=== PATIENT | female | born 1940 | race Caucasian/White ===

== ENCOUNTER 2016-11-18 13:24 | Inpatient (IN) ==
[2016-11-26 05:47] LABS: Basophils % 0.5 %; Eosinophils # 0.2 K/mcL (0.0-0.6); Eosinophils % 2.1 %; Hemoglobin 9.3 g/dL (11.5-15.4); Immature Granulocytes % 0.5 % (0-4); Lymphocytes # 1.6 K/mcL (0.6-4.6); Lymphocytes % 17.9 %; Mean Corpuscular HGB Conc 33.2 g/dL (31.6-35.5); Mean Corpuscular Hemoglobin 32.1 pg (28.0-33.3); Mean Corpuscular Volume 96.6 fL (83.0-100.0); Mean Platelet Volume 8.6 fL (9.4-12.4); Monocytes # 0.9 K/mcL (0.0-1.3); Monocytes % 9.8 %; Neutrophils # 6.1 K/mcL (1.6-8.9); Platelet Count 386 K/mcL (140-400); Red Cell Distribution Width 14.9 % (11.5-14.5); Segmented Neutrophils % 69.2 %
[2016-11-26 05:48] LABS: INR 1.1; Prothrombin Time 11.4 Seconds (9.4-12.1)
[2016-11-26 05:51] LABS: Activated Partial Thrombo Time 28.2 Seconds (26.0-36.0)
[2016-11-26 06:09] LABS: BUN/Creatinine Ratio 14 (6-26); Blood Urea Nitrogen 12 mg/dL (7-20); Calcium 9.2 mg/dL (8.6-10.8); Carbon Dioxide 28 mEq/L (19-29); Chloride 105 mEq/L (98-109); Glucose 108 mg/dL (70-99); Osmolality,Calculated 288 (280-300); Potassium 4.2 mEq/L (3.5-4.5); Sodium 139 mEq/L (136-145); eGFR For African Americans > 60 (> 60); eGFR For Non-African Americans > 60 (> 60)
[2016-11-26] MEDS: Acetaminophen 325 MG TABLET PO PRN (08:32)
--- NOTE | 2016-11-26 11:39 | Internal Med History&Physical ---
Date of Encounter: 11/26/16 Time of Encounter: 11:37 Assessment and Plan (1) Symptoms of cerebrovascular accident (CVA) Current visit: No Status: Acute (2) Slurred speech Current visit: No Status: Acute (3) Acute encephalopathy Current visit: No Status: Acute (4) Acquired aphasia Current visit: No Status: Acute (5) Encephalopathy Current visit: No Status: Acute Internal Medicine - H&P: HPI Chief complaint: Family states on Friday she started slurring of speech complaining of cepha Admitted From: Emergency Dept Plans for Post Hospital Care: Home History of present illness: Ms. Yepez is a 76 year old female Age was admitted from emergency room with the above symptoms to rule out CVA. Initial examination with radiology did not reveal any acute CVA. Paternal microvascular disease Past Med Surg Social Fam HX - Past Medical History Medical history: arthritis, cancer, hyperlipidemia Psychiatric history: no psych history - Past Surgical History Surgical History: breast surgery - Social History Smoking Status: Former smoker Smokeless Tobacco Status: No Alcohol use: occasionally Drug use: none - Family History Mother Adopted: No Living Status: Age at : 43 Hx Family Cardiac Disorders: Yes Internal Medicine - H&P: Meds Acetaminophen [Tylenol] 650 mg PO Q6HR PRN #0 tablet 11/14/16 [Rx] Clopidogrel [Plavix] 75 mg PO DAILY 11/25/16 [History] MiraLAX Powder Bulk 17.9 Oz 17 g PO DAILY 11/25/16 [History] Tramadol HCl [Ultram] 50 mg PO QID PRN 11/25/16 [History] Allergies No Known Allergies Allergy (Verified 11/11/16 16:58) All Systems PM: A 10-system review of systems was performed and is negative for pertinent findings except as documented above in the HPI. - Constitutional Vitals: Temp Pulse Resp BP Pulse Ox 98.2 F 82 16 119/72 95 11/26/16 07:12 11/26/16 07:12 11/26/16 07:12 11/26/16 07:12 11/26/16 07:12 - Head Head exam: Present: atraumatic, normal inspection, normocephalic - Neck Neck exam general surgery: Present: supple, trachea midline. Absent: lymphadenopathy - Respiratory Respiratory exam: Present: CTAB. Absent: accessory muscle use, rales, rhonchi, wheezes - Cardiovascular Cardiovascular exam: Present: RRR, +S1, +S2. Absent: diastolic murmur, gallop, rubs, systolic murmur - GI/Abdominal GI/Abdominal exam: Present: normal bowel sounds, soft, no peritoneal signs. Absent: distended, tenderness Internal Med - H&P Results - Labs CBC & Chem 7: 11/26/16 05:25 11/26/16 05:25 Labs: Short CBC 11/26/16 Range/Units 05:25 WBC 8.9 (4.3-11.1) K/mcL Hgb 9.3 L (11.5-15.4) g/dL Hct 28.0 L (35.3-44.9) % Plt Count 386 (140-400) K/mcL Neutrophils # 6.1 (1.6-8.9) K/mcL BMP 11/26/16 05:25 Sodium 139 Potassium 4.2 Chloride 105 Carbon Dioxide 28 BUN 12 Creatinine 0.84 Glucose 108 H Calcium 9.2 Lab is stable - VTE Documentation of Mechanical Device: Graduated compression elastic hosiery
[2016-11-26] MEDS ORDERED: Ibuprofen 800 MG TABLET PO ONE (13:15)
[2016-11-26] MEDS: MOM Conc 10 ML UD.LIQ PO SCH (20:42)
[2016-11-27] MEDS: Ibuprofen 800 MG TABLET PO PRN (06:08)
[2016-11-27] MEDS: Acetaminophen 325 MG TABLET PO PRN (07:42)
--- NOTE | 2016-11-27 12:58 | Internal Med Progress Note ---
Date of Encounter: 11/27/16 Time of Encounter: 12:56 - Assessment and plan (1) Symptoms of cerebrovascular accident (CVA) Current Visit: Yes Status: Acute (2) Slurred speech Current Visit: Yes Status: Acute (3) Acute encephalopathy Current Visit: Yes Status: Acute (4) Acquired aphasia Current Visit: Yes Status: Acute (5) Encephalopathy Current Visit: No Status: Acute - Time Spent With Patient less than 15 minutes - Subjective Interval history: Mrs. Joyce Santiago is cooperating. Her speech is amaro. The problem is she said she had some rectal bleeding. I did a hemoglobin and we will see if it has dropped. Apparently there is a previous colonoscopy since she had diverticular disease - Constitutional Vitals: Temp Pulse Resp BP Pulse Ox 98.2 F 76 18 120/74 96 11/27/16 06:57 11/27/16 06:57 11/27/16 06:57 11/27/16 06:57 11/27/16 06:57 - Head Head exam: Present: atraumatic, normal inspection, normocephalic - Neck Neck exam general surgery: Present: supple, trachea midline. Absent: lymphadenopathy - Respiratory Respiratory exam: Present: CTAB. Absent: accessory muscle use, rales, rhonchi, wheezes - Cardiovascular Cardiovascular exam: Present: RRR, +S1, +S2. Absent: diastolic murmur, gallop, rubs, systolic murmur - GI/Abdominal GI/Abdominal exam: Present: normal bowel sounds, soft, no peritoneal signs. Absent: distended, tenderness Internal Medicine: Result - Labs CBC & Chem 7: 11/26/16 05:25 11/26/16 05:25 Labs: Last hemoglobin was 9.3 so we will follow - ABG Interpretation ABG results: PT/INR, D-dimer PT 11.4 Seconds (9.4-12.1) 11/26/16 05:25 - VTE Documentation of Mechanical Device: Graduated compression elastic hosiery Consult Discharge Plan - Plan Referrals: Herman King MD [Primary Care Provider] - (Follow up with Neurology in 8-10 wks. Tesha Ricketts DO [address] [place], [place] [phone] Follow up with PCP after discharge Herman King MD [address] [place], [place] [phone] )
--- NOTE | 2016-11-27 13:51 | Psychological Evaluation ---
Date of Encounter: 11/27/16 Time of Encounter: 11:00 History of Present Illness History of present illness: Ms. Yepez is a 76 year old female initially seen at the ED of [facility] to rule out CVA following the sudden onset of slurred, unintelligible speech and poor balance. Ms Yepez was then transferred to [facility] for further medical work-up. She was admitted to [facility] earlier this week (11/25/16) for inpatient rehabilitation to address limitations related to her recent CVA. She was seen by this provider on this date to assess her current emotional and cognitive functioning and to address her report of visual hallucinations. Past Medical History Medical history: Significant for cancer, hyperlipidemia and arthritis. - Psychiatric History Additional Psychiatric History: There is no history of psychiatric hospitalization or history of suicidal ideation, intention or attempt. She has been treated for depression and reported that she saw therapist in the past. There is no family history of psychiatric or mental health issues. Home Medications and Allergies Acetaminophen [Tylenol] 650 mg PO Q6HR PRN #0 tablet 11/14/16 [Rx] Clopidogrel [Plavix] 75 mg PO DAILY 11/25/16 [History] MiraLAX Powder Bulk 17.9 Oz 17 g PO DAILY 11/25/16 [History] Tramadol HCl [Ultram] 50 mg PO QID PRN 11/25/16 [History] Allergies No Known Allergies Allergy (Verified 11/11/16 16:58) Social History - Social History Social History: Ms. Yepez has been to her for over 50 years. She stated that her is 90 years old and she is his main caregiver. He has been having more health issues in recent years (CHF and kidney failure for which he is on dialysis). The couple had retired to [place] but returned to [place] in June 2016 to be closer to their children/family. Ms. Yepez stated that they have one son (lives in [place]) and one daughter (lives in [place]). 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 She used to enjoy scrapbooking, reading and exercising. Her days had been focused on care of her prior to her CVA. - Tobacco Use Smoking Status: Former smoker - Alcohol Use Alcohol Use: occasionally Cognitive/Emotional Assessment - Cognitive Ability Additional Findings: Ms. Yepez was alert, attentive and oriented for person and place. She was correct for month and year but identified the date as "14". She performed within the normal range on tasks measuring attention/concentration, working memory, verbal comprehension, sentence repetition, confrontational naming and mental arithmetic. She also performed within the normal range on social judgment and verbal reasoning. Her performance on a measure of delayed verbal recall fell within the mildly impaired range. She exhibited problems with retrieval of new information but her performance was improved with category and recognition cueing. Ms. Yepez presented as aware of her cognitive strengths and weaknesses. - Emotional Status Additional Findings: Ms. Yepez was pleasant, friendly and cooperative. Her speech was clear, effective and fluent. Thought processes were logical, coherent and goal directed. Mood was reported to be "depressed" and she became tearful when talking about her concerns about her 's health. She acknowledged that she and her tend to "protect" each other and do not share their fears/ emotional concerns with each other. She uses prayer, talking with friends, music and reading to cope with distress. In addition to her depressed mood, Ms. Yepez reported that she has been having visual hallucinations since her CVA. She "sees" images of people but when she turns her head, the image disappears. She is very aware that these are hallucinations. The images are of people not known by her and they do not create a sense of fear. There is no history of visual hallucinations prior to her recent CVA. 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 However, she is exhibiting some difficulty with delayed verbal recall and will benefit from the use of verbal and visual cueing for learning new information (ie how to use walker; medication changes or restrictions/ supervision needs). Emotionally, Ms. Yepez acknowledged feelings of depression and heightened concerns about her 's health and her own recovery. She will be provided individual supportive counseling while she is an inpatient at [facility]. Procedures - Session Time Session Start Time: 11:00 Session Stop Time: 11:30
--- NOTE | 2016-11-27 15:22 | Physcial Medicine-Consult Note ---
Date of Encounter: 11/27/16 Time of Encounter: 15:18 Physical Medicine - AP (1) Symptoms of cerebrovascular accident (CVA) Status: Acute Assessment and plan: 1. Patient will continue with intensive PT/OT/ST/TR. 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 She has difficulty using a walker safely and requires frequent cues. She has occasional loss of balance with ambulation. She has some issues with impulsivity. 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 Short term memory deficits-can retrieve memories with cues. At this point, patient will require an alarm for safety due her impulsivity. Plan for continued therapy for 2 weeks with goal of discharge to home. Code(s): R29.90 - Unspecified symptoms and signs involving the nervous system SNOMED Code(s): 613451229 (2) Anemia Status: Acute Assessment and plan: 1. She complains of fatigue which is possibly secondary to her anemia. Recommend rechecking hemoglobin and hematocrit in am. Patient with history of gi bleed with a drop in hgb to 9.3 from 11. Potential repeat endoscopy this week. Code(s): D64.9 - Anemia, unspecified SNOMED Code(s): 027911868 (3) Hallucinations, visual Status: Acute Assessment and plan: 1. She is complaining of frequent visual hallucinations. She is aware that they are hallucinations. We will discontinue the ultram. Code(s): R44.1 - Visual hallucinations SNOMED Code(s): 92612232 Physical Medicine - HPI - Data of Consult Consult date: 11/27/16 Requesting Physician: Duran Barlow DO Primary Care Provider: Herman King MD - Consult Narrative Reason for consult: s/p CVA History of present illness: Ms. Yepez is a 76 year old female who initially presented to an OSH with acute encephalopathy, dysarthria and aphasia. An mri of her brain revealed a left medial lobe occipital infarct. Her acute course was complicated by a gi bleed requiring transfusion. Patient was subsequently stabilized and transferred for inpatient rehabilitation. CC: Druan Barlow DO Past Med Surg Social Fam HX - Past Medical History Medical history: arthritis, cancer, hyperlipidemia Psychiatric history: no psych history - Past Surgical History Surgical History: breast surgery - Social History Smoking Status: Former smoker Smokeless Tobacco Status: No Alcohol use: occasionally Drug use: none - Family History Mother Adopted: No Living Status: Age at : 43 Hx Family Cardiac Disorders: Yes Medications and Allergies Acetaminophen [Tylenol] 650 mg PO Q6HR PRN #0 tablet 11/14/16 [Rx] Clopidogrel [Plavix] 75 mg PO DAILY 11/25/16 [History] MiraLAX Powder Bulk 17.9 Oz 17 g PO DAILY 11/25/16 [History] Tramadol HCl [Ultram] 50 mg PO QID PRN 11/25/16 [History] Allergies No Known Allergies Allergy (Verified 11/11/16 16:58) - Constitutional Constitutional: Present: fatigue - EENT Eyes: Absent: blurry vision, change in vision - Cardiovascular Cardiovascular: Absent: chest pain, chest pain at rest, dyspnea - Respiratory Respiratory: Absent: dyspnea - Gastrointestinal Gastrointestinal: Present: constipation, nausea - Genitourinary Genitourinary: Absent: urinary incontinence - Musculoskeletal Musculoskeletal: Present: abnormal gait - Neurological Neurological: Present: headache(s) - Psychiatric Psychiatric: Present: visual hallucinations Physical Medicine - Exam - Constitutional Vitals: Temp Pulse Resp BP Pulse Ox 98.2 F 76 18 120/74 96 11/27/16 06:57 11/27/16 06:57 11/27/16 06:57 11/27/16 06:57 11/27/16 06:57 General appearance: no acute distress, thin Exam: Patient is seated in the therapy gym. She is oriented to person and place. She is able to follow multistep commands. - Head Head exam: Present: normal inspection Additional comments: No facial droop. - Respiratory Respiratory exam: Present: CTAB - Cardiovascular Cardiovascular exam: Present: RRR - GI/Abdominal GI/Abdominal exam: Present: normal bowel sounds, soft. Absent: tenderness - Extremities Exam Extremities exam: Present: full ROM. Absent: calf tenderness Additional comments: Reflexes are absent symmetrically in the upper and lower limbs. Motor strength is 5/5 in all 4 limbs. No pain with PROM of the upper and lower limbs. Physical Medicine - Results - Labs CBC & Chem 7: 11/26/16 05:25 11/26/16 05:25 Consult Discharge Plan - Plan Referrals: Herman King MD [Primary Care Provider] - (Follow up with Neurology in 8-10 wks. Tesha Ricketts DO [address] [facility] [address] [place], [place] [phone] Follow up with PCP after discharge Herman King MD [address] [facility] [place], [place] [phone] )
[2016-11-27 19:01] LABS: Hematocrit 30.3 % (35.3-44.9); Hemoglobin 9.7 g/dL (11.5-15.4)
[2016-11-27] MEDS: MOM Conc 10 ML UD.LIQ PO SCH (20:38)
[2016-11-28] MEDS: Ibuprofen 800 MG TABLET PO PRN ×2 (05:31→17:50)
--- NOTE | 2016-11-28 13:27 | Internal Med Progress Note ---
Date of Encounter: 11/28/16 Time of Encounter: 13:24 - Assessment and plan (1) Symptoms of cerebrovascular accident (CVA) Current Visit: Yes Status: Acute Assessment and plan: Patient is significantly improve or work with all modalities of therapy (2) Slurred speech Current Visit: Yes Status: Acute Assessment and plan: This is essentially resolved (3) Acute encephalopathy Current Visit: Yes Status: Acute Assessment and plan: This also was resolved (4) Acquired aphasia Current Visit: Yes Status: Acute (5) Encephalopathy Current Visit: No Status: Acute - Time Spent With Patient less than 15 minutes - Subjective Interval history: Mrs. Joyce Santiago is cooperating. Her speech is improved. The problem is she said she had some rectal bleeding. I did a hemoglobin and we will see if it has dropped. Apparently there is a previous colonoscopy since she had diverticular disease - Constitutional Vitals: Temp Pulse Resp BP Pulse Ox 98.5 F 71 18 115/59 96 11/28/16 07:00 11/28/16 07:00 11/28/16 07:00 11/28/16 07:00 11/28/16 07:00 - Head Head exam: Present: atraumatic, normal inspection, normocephalic - Neck Neck exam general surgery: Present: supple, trachea midline. Absent: lymphadenopathy - Respiratory Respiratory exam: Present: CTAB. Absent: accessory muscle use, rales, rhonchi, wheezes - Cardiovascular Cardiovascular exam: Present: RRR, +S1, +S2. Absent: diastolic murmur, gallop, rubs, systolic murmur - GI/Abdominal GI/Abdominal exam: Present: normal bowel sounds, soft, no peritoneal signs. Absent: distended, tenderness Internal Medicine: Result - Labs CBC & Chem 7: 11/27/16 18:35 11/26/16 05:25 Labs: Short CBC 11/27/16 Range/Units 18:35 Hgb 9.7 L (11.5-15.4) g/dL Hct 30.3 L (35.3-44.9) % Hemoglobin is stable here will be repeated in am - ABG Interpretation ABG results: PT/INR, D-dimer PT 11.4 Seconds (9.4-12.1) 11/26/16 05:25 - VTE Documentation of Mechanical Device: Graduated compression elastic hosiery Consult Discharge Plan - Plan Referrals: Herman King MD [Primary Care Provider] - (Follow up with Neurology in 8-10 wks. Tesha Ricketts, DO [address] [facility] [address] [place], [place] [phone] Follow up with PCP after discharge Herman King MD [address] [facility] [place], [place] [phone] )
[2016-11-28] MEDS: MOM Conc 10 ML UD.LIQ PO SCH (21:12)
[2016-11-29] MEDS: Ibuprofen 800 MG TABLET PO PRN (04:39)
[2016-11-29] MEDS: MOM Conc 10 ML UD.LIQ PO SCH (20:04)
--- NOTE | 2016-11-29 22:42 | Internal Med Progress Note ---
Date of Encounter: 11/29/16 Time of Encounter: 22:40 - Assessment and plan (1) Symptoms of cerebrovascular accident (CVA) Current Visit: Yes Status: Acute Assessment and plan: Right-sided waviness in balance issues. PT OT working in improving violence, transfer, continue with intensive PT/OT/ST/TR. 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 She has difficulty using a walker safely and requires frequent cues. She has occasional loss of balance with ambulation. She has some issues with impulsivity. 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 - Time Spent With Patient less than 15 minutes - Subjective Interval history: Denies new complaints today. Same right-sided awareness issue. Same balance difficulty. Has occasional hallucination. No shortness of breath. No chest pain. - Constitutional Vitals: Temp Pulse Resp BP Pulse Ox 97.8 F 83 16 126/67 94 11/29/16 19:00 11/29/16 19:00 11/29/16 19:00 11/29/16 19:00 11/29/16 19:00 General appearance: Present: A&O X 3, pleasant, answers questions appropriately - Respiratory Respiratory exam: Present: CTAB. Absent: accessory muscle use, rales, rhonchi, wheezes - Cardiovascular Cardiovascular exam: Present: RRR, +S1, +S2. Absent: diastolic murmur, gallop, rubs, systolic murmur - GI/Abdominal GI/Abdominal exam: Present: normal bowel sounds, soft, no peritoneal signs. Absent: distended, tenderness - Extremities Exam Extremities exam: Present: warm, radial pulses palpable and symetrical. Absent : calf tenderness, cyanotic, pedal edema - Neurological Exam Neurological exam: Present: alert, oriented X3. Absent: facial droop, speech deficit Additional comments: Right-sided awareness deficit. Some loss of balance. Internal Medicine: Result - Labs CBC & Chem 7: 11/27/16 18:35 11/26/16 05:25 - ABG Interpretation ABG results: PT/INR, D-dimer PT 11.4 Seconds (9.4-12.1) 11/26/16 05:25 - VTE Documentation of Mechanical Device: Graduated compression elastic hosiery Consult Discharge Plan - Plan Referrals: Herman King MD [Primary Care Provider] - (Follow up with Neurology in 8-10 wks. Tesha Ricketts DO [address] [place], [place] [phone] Follow up with PCP after discharge Herman King MD [address] [facility] [place], [place] [phone] )
[2016-11-30] MEDS: Ibuprofen 800 MG TABLET PO PRN ×2 (08:04→21:54)
[2016-11-30] MEDS: MOM Conc 10 ML UD.LIQ PO SCH (20:59)
[2016-12-01] MEDS: Ibuprofen 800 MG TABLET PO PRN (09:44)
[2016-12-01] MEDS: MOM Conc 10 ML UD.LIQ PO SCH (20:00)
[2016-12-02 06:20] LABS: BUN/Creatinine Ratio 20 (6-26); Blood Urea Nitrogen 16 mg/dL (7-20); Calcium 9.1 mg/dL (8.6-10.8); Carbon Dioxide 23 mEq/L (19-29); Chloride 110 mEq/L (98-109); Glucose 96 mg/dL (70-99); Osmolality,Calculated 295 (280-300); Potassium 4.1 mEq/L (3.5-4.5); Sodium 142 mEq/L (136-145); eGFR For African Americans > 60 (> 60); eGFR For Non-African Americans > 60 (> 60)
[2016-12-02 07:14] LABS: Basophils # 0.1 K/mcL (0.0-0.2); Basophils % 0.9 %; Eosinophils # 0.3 K/mcL (0.0-0.6); Eosinophils % 4.8 %; Hematocrit 29.4 % (35.3-44.9); Hemoglobin 9.4 g/dL (11.5-15.4); INR 1.1; Immature Granulocytes % 0.4 % (0-4); Lymphocytes # 1.1 K/mcL (0.6-4.6); Lymphocytes % 20.2 %; Mean Corpuscular Hemoglobin 31.1 pg (28.0-33.3); Mean Corpuscular Volume 97.4 fL (83.0-100.0); Mean Platelet Volume 8.9 fL (9.4-12.4); Monocytes # 0.7 K/mcL (0.0-1.3); Monocytes % 12.2 %; Neutrophils # 3.3 K/mcL (1.6-8.9); Platelet Count 378 K/mcL (140-400); Prothrombin Time 11.5 Seconds (9.4-12.1); Red Blood Count 3.02 M/mcL (3.82-4.97); Red Cell Distribution Width 14.4 % (11.5-14.5); Segmented Neutrophils % 61.5 %
[2016-12-02] MEDS: Ibuprofen 800 MG TABLET PO PRN ×2 (08:15→21:07)
--- NOTE | 2016-12-02 14:28 | Internal Med Progress Note ---
Date of Encounter: 12/02/16 Time of Encounter: 14:00 - Assessment and plan (1) Symptoms of cerebrovascular accident (CVA) Current Visit: Yes Status: Acute (2) Slurred speech Current Visit: Yes Status: Acute (3) Acute encephalopathy Current Visit: Yes Status: Acute (4) Acquired aphasia Current Visit: Yes Status: Acute (5) Encephalopathy Current Visit: No Status: Acute - Subjective Interval history: Mr. Dotsons hemoglobin has been within few tends to hold time. We will continue to follow that. We will see if I can get her follow-up appointment with Dr. Walker. - Constitutional Vitals: Temp Pulse Resp BP Pulse Ox 98.9 F 73 18 136/84 96 12/02/16 08:03 12/02/16 08:03 12/02/16 08:03 12/02/16 08:03 12/02/16 08:03 General appearance: Present: A&O X 3, pleasant, answers questions appropriately - Head Head exam: Present: atraumatic, normal inspection, normocephalic - Respiratory Respiratory exam: Present: CTAB. Absent: accessory muscle use, rales, rhonchi, wheezes - Cardiovascular Cardiovascular exam: Present: RRR, +S1, +S2. Absent: diastolic murmur, gallop, rubs, systolic murmur - GI/Abdominal GI/Abdominal exam: Present: normal bowel sounds, soft, no peritoneal signs. Absent: distended, tenderness - Rectal Additional comments: Patient reports no more rectal bleeding. Internal Medicine: Result - Labs CBC & Chem 7: 12/02/16 06:30 12/02/16 05:20 Labs: Short CBC 12/02/16 Range/Units 06:30 WBC 5.4 (4.3-11.1) K/mcL Hgb 9.4 L (11.5-15.4) g/dL Hct 29.4 L (35.3-44.9) % Plt Count 378 (140-400) K/mcL Neutrophils # 3.3 (1.6-8.9) K/mcL BMP 12/02/16 05:20 Sodium 142 Potassium 4.1 Chloride 110 H Carbon Dioxide 23 BUN 16 Creatinine 0.81 Glucose 96 Calcium 9.1 - ABG Interpretation ABG results: PT/INR, D-dimer PT 11.5 Seconds (9.4-12.1) 12/02/16 06:30 - VTE Documentation of Mechanical Device: Graduated compression elastic hosiery Consult Discharge Plan - Plan Referrals: Herman King MD [Primary Care Provider] - (Follow up with Neurology in 8-10 wks. Tesha Ricketts DO [address] [facility] [address] [place], [place] [phone] Follow up with PCP after discharge Herman King MD [address] [facility] [place], [place] [phone] )
[2016-12-02] MEDS: MOM Conc 10 ML UD.LIQ PO SCH (20:59)
[2016-12-03] MEDS: Ibuprofen 800 MG TABLET PO PRN (08:09)
--- NOTE | 2016-12-03 15:43 | Internal Med Progress Note ---
Date of Encounter: 12/03/16 Time of Encounter: 15:41 - Assessment and plan (1) Symptoms of cerebrovascular accident (CVA) Current Visit: Yes Status: Acute Assessment and plan: Patient had CVA but is coming along nicely. Please see PT OT when necessary speech notes (2) Slurred speech Current Visit: Yes Status: Acute Assessment and plan: This is resolved. (3) Acute encephalopathy Current Visit: Yes Status: Acute Assessment and plan: Resolved (4) Acquired aphasia Current Visit: Yes Status: Acute Assessment and plan: Resolved (5) Encephalopathy Current Visit: No Status: Acute - Time Spent With Patient less than 15 minutes - Subjective Interval history: Mrs. Joyce Santiago is stable participating in care reports no rectal bleeding. I will check hemoglobin in the a.m. - Constitutional Vitals: Temp Pulse Resp BP Pulse Ox 98.8 F 78 18 132/81 97 12/03/16 07:00 12/03/16 07:00 12/03/16 07:00 12/03/16 07:00 12/03/16 07:00 General appearance: Present: A&O X 3, pleasant, answers questions appropriately - Head Head exam: Present: atraumatic, normal inspection, normocephalic - Neck Neck exam general surgery: Present: supple, trachea midline. Absent: lymphadenopathy - Respiratory Respiratory exam: Present: CTAB. Absent: accessory muscle use, rales, rhonchi, wheezes - Cardiovascular Cardiovascular exam: Present: RRR, +S1, +S2. Absent: diastolic murmur, gallop, rubs, systolic murmur Internal Medicine: Result - Labs CBC & Chem 7: 12/02/16 06:30 12/02/16 05:20 Labs: Lab is stable - ABG Interpretation ABG results: PT/INR, D-dimer PT 11.5 Seconds (9.4-12.1) 12/02/16 06:30 - VTE Documentation of Mechanical Device: Graduated compression elastic hosiery Consult Discharge Plan - Plan Referrals: Tesha Ricketts D>O> [Other] (APPT ON FEBRUARY 27, 2017 AT 12:00, OFFICE WILL SEND NEW PATIENT PACKET PRIOR TO APPT WITH DIRECTIONS) Herman King MD [Primary Care Provider] - 12/16/16 1:20 pm ()
[2016-12-03] MEDS: MOM Conc 10 ML UD.LIQ PO SCH (20:10)
[2016-12-04 05:25] LABS: Hematocrit 29.1 % (35.3-44.9); Hemoglobin 9.2 g/dL (11.5-15.4)
--- NOTE | 2016-12-04 13:14 | Physical Med Progress Note ---
Date of Encounter: 12/12/16 Time of Encounter: 13:09 Assessment and Plan (1) Symptoms of cerebrovascular accident (CVA) Status: Acute Assessment and plan: 1. Continue with PT/OT/ST/TR. Family meeting to discuss discharge needs. Code(s): R29.90 - Unspecified symptoms and signs involving the nervous system (2) Anemia Status: Acute (3) Hallucinations, visual Status: Acute Physical Medicine-PN: Subj Interval history: PCC Note Patient continues to have problems with short term memory. She has difficulty following simple written directions, difficulty with money management. She has issues with balance. Poor insight into her deficits. No focal weakness. PT is working on high level balance and ambulation. Her primary barrier to discharge is related to her cognitive issues. Plan for a family meeting to discuss discharge needs. We will recommend 24 hour supervision at discharge. Plan for discharge 12/11/16. - Constitutional Vitals: Vital Signs Temp Pulse Resp BP Pulse Ox 12/04/16 07:05 98.1 F 70 16 135/68 95 12/03/16 19:02 98.0 F 88 16 130/72 99 Intake and Output 12/03/16 12/04/16 12/04/16 23:59 07:59 15:59 Intake Total 180 / 180 240 / 240 Output Total 400 / 400 Balance 180 / 180 -400 / -400 240 / 240 Intake: Oral 180 / 180 240 / 240 Output: Urine 400 / 400 Other: Meal Dinner Breakfast Percent of Meal Consumed 100% 90% Stool Size Moderate Small Stool Consistency formed soft Stool Characteristics Normal for Patient Stool Color Brown Brown # Voids 1 1 # Bowel Movements 1 1 Physical Medicine-PN: Obj Data - Labs CBC & Chem 7: 12/09/16 06:00 12/09/16 06:00 Labs: Laboratory Results - last 24 hr 12/04/16 04:50 Hgb 9.2 L Hct 29.1 L - ABG Interpretation ABG results: PT/INR, D-dimer PT 11.5 Seconds (9.4-12.1) 12/02/16 06:30 - VTE Documentation of Mechanical Device: Graduated compression elastic hosiery Consult Discharge Plan - Plan Instructions: Ischemic Stroke (DC), Anemia (DC) Additional Instructions: Home with 24 hour supervision. Referrals: Tesha Ricketts D>O> [Other] (APPT ON FEBRUARY 27, 2017 AT 12:00, OFFICE WILL SEND NEW PATIENT PACKET PRIOR TO APPT WITH DIRECTIONS) Herman King MD [Primary Care Provider] - 12/16/16 1:20 pm ()
[2016-12-04] MEDS: MOM Conc 10 ML UD.LIQ PO SCH (19:36)
[2016-12-04] MEDS: Ibuprofen 800 MG TABLET PO PRN (21:39)
--- NOTE | 2016-12-05 14:22 | Internal Med Progress Note ---
Date of Encounter: 12/05/16 Time of Encounter: 14:20 - Assessment and plan (1) Symptoms of cerebrovascular accident (CVA) Current Visit: Yes Status: Acute Assessment and plan: CVA is stable working with all modalities of the therapist (2) Slurred speech Current Visit: Yes Status: Acute Assessment and plan: Resolved (3) Acute encephalopathy Current Visit: Yes Status: Acute Assessment and plan: Resolved (4) Acquired aphasia Current Visit: Yes Status: Acute Assessment and plan: Resolved (5) Encephalopathy Current Visit: No Status: Acute - Time Spent With Patient less than 15 minutes - Subjective Interval history: No problems hemoglobin stable patient will see Dr. Walker after discharge from here - Constitutional Vitals: Temp Pulse Resp BP Pulse Ox 97.6 F 71 16 128/69 94 12/05/16 07:05 12/05/16 07:05 12/05/16 07:05 12/05/16 07:05 12/05/16 07:05 General appearance: Present: A&O X 3, pleasant, answers questions appropriately - Head Head exam: Present: atraumatic, normal inspection, normocephalic - Neck Neck exam general surgery: Present: supple, trachea midline. Absent: lymphadenopathy - Respiratory Respiratory exam: Present: CTAB. Absent: accessory muscle use, rales, rhonchi, wheezes - Cardiovascular Cardiovascular exam: Present: RRR, +S1, +S2. Absent: diastolic murmur, gallop, rubs, systolic murmur Internal Medicine: Result - Labs CBC & Chem 7: 12/04/16 04:50 12/02/16 05:20 - ABG Interpretation ABG results: PT/INR, D-dimer PT 11.5 Seconds (9.4-12.1) 12/02/16 06:30 - VTE Documentation of Mechanical Device: Graduated compression elastic hosiery Consult Discharge Plan - Plan Referrals: Tesha Ricketts D>O> [Other] (APPT ON FEBRUARY 27, 2017 AT 12:00, OFFICE WILL SEND NEW PATIENT PACKET PRIOR TO APPT WITH DIRECTIONS) Herman King MD [Primary Care Provider] - 12/16/16 1:20 pm ()
[2016-12-05] MEDS ORDERED: MOM Conc 10 ML UD.LIQ PO PRN (16:29)
--- NOTE | 2016-12-06 14:12 | Internal Med Progress Note ---
Date of Encounter: 12/06/16 Time of Encounter: 13:43 - Assessment and plan (1) Symptoms of cerebrovascular accident (CVA) Current Visit: Yes Status: Acute Assessment and plan: Improving on a daily basis. A phase E of the dysarthria and all that is resolved (2) Slurred speech Current Visit: Yes Status: Resolved Assessment and plan: Resolve (3) Acute encephalopathy Current Visit: Yes Status: Resolved Assessment and plan: Resolve (4) Acquired aphasia Current Visit: Yes Status: Acute Assessment and plan: Resolved (5) Encephalopathy Current Visit: No Status: Acute - Time Spent With Patient less than 15 minutes - Subjective Interval history: No problems hemoglobin stable patient will see Dr. Walker after discharge from here. Overall doing well cooperating looks good speaks well and seems to be cognitively intact at this point - Constitutional Vitals: Temp Pulse Resp BP Pulse Ox 98.7 F 66 18 143/70 94 12/06/16 06:49 12/06/16 06:49 12/06/16 06:49 12/06/16 06:49 12/06/16 06:49 General appearance: Present: A&O X 3, pleasant, answers questions appropriately - Head Head exam: Present: atraumatic, normal inspection, normocephalic - Neck Neck exam general surgery: Present: supple, trachea midline. Absent: lymphadenopathy - Respiratory Respiratory exam: Present: CTAB. Absent: accessory muscle use, rales, rhonchi, wheezes - Cardiovascular Cardiovascular exam: Present: RRR, +S1, +S2. Absent: diastolic murmur, gallop, rubs, systolic murmur - GI/Abdominal GI/Abdominal exam: Present: normal bowel sounds, soft, no peritoneal signs. Absent: distended, tenderness Internal Medicine: Result - Labs CBC & Chem 7: 12/04/16 04:50 12/02/16 05:20 Labs: Lab is stable - ABG Interpretation ABG results: PT/INR, D-dimer PT 11.5 Seconds (9.4-12.1) 12/02/16 06:30 - VTE Documentation of Mechanical Device: Graduated compression elastic hosiery Consult Discharge Plan - Plan Referrals: Tesha Ricketts D>O> [Other] (APPT ON FEBRUARY 27, 2017 AT 12:00, OFFICE WILL SEND NEW PATIENT PACKET PRIOR TO APPT WITH DIRECTIONS) Herman King MD [Primary Care Provider] - 12/16/16 1:20 pm ()
[2016-12-06] MEDS: Ibuprofen 800 MG TABLET PO PRN (20:16)
--- NOTE | 2016-12-07 09:08 | Internal Med Progress Note ---
Date of Encounter: 12/07/16 Time of Encounter: 09:06 - Assessment and plan (1) Symptoms of cerebrovascular accident (CVA) Current Visit: Yes Status: Acute Assessment and plan: She has difficulty using a walker safely and requires frequent cues. She has occasional loss of balance with ambulation. She has some issues with impulsivity. 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 Short term memory deficits -can retrieve memories with cues.d - Time Spent With Patient less than 15 minutes - Subjective Interval history: feels as though she is getting much better and ready to go home this week Denies new complaints today. Same right-sided awareness issue. Same balance difficulty. Has occasional hallucination. No shortness of breath. No chest pain. - Constitutional Vitals: Temp Pulse Resp BP Pulse Ox 97.8 F 72 16 126/69 95 12/07/16 06:53 12/07/16 06:53 12/07/16 06:53 12/07/16 06:53 12/07/16 06:53 General appearance: Present: A&O X 3, pleasant, answers questions appropriately - Respiratory Respiratory exam: Present: CTAB. Absent: accessory muscle use, rales, rhonchi, wheezes - Cardiovascular Cardiovascular exam: Present: RRR, +S1, +S2. Absent: diastolic murmur, gallop, rubs, systolic murmur Internal Medicine: Result - Labs CBC & Chem 7: 12/04/16 04:50 12/02/16 05:20 - ABG Interpretation ABG results: PT/INR, D-dimer PT 11.5 Seconds (9.4-12.1) 12/02/16 06:30 - VTE Documentation of Mechanical Device: Graduated compression elastic hosiery Consult Discharge Plan - Plan Referrals: Tesha Ricketts D>O> [Other] (APPT ON FEBRUARY 27, 2017 AT 12:00, OFFICE WILL SEND NEW PATIENT PACKET PRIOR TO APPT WITH DIRECTIONS) Herman King MD [Primary Care Provider] - 12/16/16 1:20 pm ()
--- NOTE | 2016-12-08 10:22 | Internal Med Progress Note ---
Date of Encounter: 12/08/16 Time of Encounter: 10:19 - Assessment and plan (1) Symptoms of cerebrovascular accident (CVA) Current Visit: Yes Status: Acute Assessment and plan: Patient's been progressing on a daily basis (2) Slurred speech Current Visit: Yes Status: Resolved Assessment and plan: Resolved (3) Acute encephalopathy Current Visit: Yes Status: Resolved Assessment and plan: Resolved (4) Acquired aphasia Current Visit: Yes Status: Acute Assessment and plan: Resolved (5) Encephalopathy Current Visit: No Status: Acute Assessment and plan: Resolved - Time Spent With Patient less than 15 minutes - Subjective Interval history: No problems hemoglobin stable patient will see Dr. Walker after discharge from here. Overall doing well cooperating looks good speaks well and seems to be cognitively intact at this point. Overall is doing very well. - Constitutional Vitals: Temp Pulse Resp BP Pulse Ox 98.4 F 70 16 130/70 95 12/08/16 07:08 12/08/16 07:08 12/08/16 07:08 12/08/16 07:08 12/08/16 07:08 General appearance: Present: A&O X 3, pleasant, answers questions appropriately - Head Head exam: Present: atraumatic, normal inspection, normocephalic - Neck Neck exam general surgery: Present: supple, trachea midline. Absent: lymphadenopathy - Respiratory Respiratory exam: Present: CTAB. Absent: accessory muscle use, rales, rhonchi, wheezes - Cardiovascular Cardiovascular exam: Present: RRR, +S1, +S2. Absent: diastolic murmur, gallop, rubs, systolic murmur Internal Medicine: Result - Labs CBC & Chem 7: 12/04/16 04:50 12/02/16 05:20 Labs: We will follow the hemoglobin - ABG Interpretation ABG results: PT/INR, D-dimer PT 11.5 Seconds (9.4-12.1) 12/02/16 06:30 - VTE Documentation of Mechanical Device: Graduated compression elastic hosiery Consult Discharge Plan - Plan Referrals: Tesha Ricktets D>O> [Other] (APPT ON FEBRUARY 27, 2017 AT 12:00, OFFICE WILL SEND NEW PATIENT PACKET PRIOR TO APPT WITH DIRECTIONS) Herman King MD [Primary Care Provider] - 12/16/16 1:20 pm ()
[2016-12-08] MEDS: Ibuprofen 800 MG TABLET PO PRN (20:32)
[2016-12-09 06:18] LABS: Basophils # 0.1 K/mcL (0.0-0.2); Basophils % 1.3 %; Eosinophils # 0.3 K/mcL (0.0-0.6); Eosinophils % 6.2 %; Hematocrit 30.4 % (35.3-44.9); Hemoglobin 9.9 g/dL (11.5-15.4); INR 1.1; Immature Granulocytes % 0.2 % (0-4); Lymphocytes # 1.4 K/mcL (0.6-4.6); Lymphocytes % 29.2 %; Mean Corpuscular HGB Conc 32.6 g/dL (31.6-35.5); Mean Corpuscular Hemoglobin 31.5 pg (28.0-33.3); Mean Corpuscular Volume 96.8 fL (83.0-100.0); Mean Platelet Volume 8.8 fL (9.4-12.4); Monocytes # 0.6 K/mcL (0.0-1.3); Monocytes % 13.4 %; Neutrophils # 2.3 K/mcL (1.6-8.9); Platelet Count 330 K/mcL (140-400); Prothrombin Time 11.6 Seconds (9.4-12.1); Red Blood Count 3.14 M/mcL (3.82-4.97); Segmented Neutrophils % 49.7 %
[2016-12-09 06:27] LABS: BUN/Creatinine Ratio 19 (6-26); Blood Urea Nitrogen 16 mg/dL (7-20); Calcium 9.4 mg/dL (8.6-10.8); Carbon Dioxide 24 mEq/L (19-29); Chloride 110 mEq/L (98-109); Glucose 91 mg/dL (70-99); Osmolality,Calculated 295 (280-300); Potassium 3.9 mEq/L (3.5-4.5); Sodium 142 mEq/L (136-145); eGFR For African Americans > 60 (> 60); eGFR For Non-African Americans > 60 (> 60)
--- NOTE | 2016-12-09 15:19 | Internal Med Progress Note ---
Date of Encounter: 12/09/16 Time of Encounter: 15:16 - Assessment and plan (1) Symptoms of cerebrovascular accident (CVA) Current Visit: Yes Status: Acute Assessment and plan: Patient is doing very well the delirium is resolved to the disks phase he has resolved patient has a little bit of problem with concentration and is easily distracted. May be able to be made independent in the room (2) Slurred speech Current Visit: Yes Status: Resolved (3) Acute encephalopathy Current Visit: Yes Status: Resolved (4) Acquired aphasia Current Visit: Yes Status: Acute Assessment and plan: Resolve (5) Encephalopathy Current Visit: No Status: Acute Assessment and plan: Resolved - Time Spent With Patient less than 15 minutes - Subjective Interval history: No problems hemoglobin stable patient will see Dr. Walker after discharge from here. Overall doing well cooperating looks good speaks well and seems to be cognitively intact at this point. Overall is doing very well. - Constitutional Vitals: Temp Pulse Resp BP Pulse Ox 98.4 F 66 16 120/79 95 12/09/16 06:35 12/09/16 06:35 12/09/16 06:35 12/09/16 06:35 12/09/16 06:35 General appearance: Present: A&O X 3, pleasant, answers questions appropriately - Head Head exam: Present: atraumatic, normal inspection, normocephalic - Neck Neck exam general surgery: Present: supple, trachea midline. Absent: lymphadenopathy - Respiratory Respiratory exam: Present: CTAB. Absent: accessory muscle use, rales, rhonchi, wheezes - Cardiovascular Cardiovascular exam: Present: RRR, +S1, +S2. Absent: diastolic murmur, gallop, rubs, systolic murmur Internal Medicine: Result - Labs CBC & Chem 7: 12/09/16 06:00 12/09/16 06:00 Labs: Short CBC 12/09/16 Range/Units 06:00 WBC 4.7 (4.3-11.1) K/mcL Hgb 9.9 L (11.5-15.4) g/dL Hct 30.4 L (35.3-44.9) % Plt Count 330 (140-400) K/mcL Neutrophils # 2.3 (1.6-8.9) K/mcL BMP 12/09/16 06:00 Sodium 142 Potassium 3.9 Chloride 110 H Carbon Dioxide 24 BUN 16 Creatinine 0.85 Glucose 91 Calcium 9.4 Lab is stable fact the hemoglobin is up slightly - ABG Interpretation ABG results: PT/INR, D-dimer PT 11.6 Seconds (9.4-12.1) 12/09/16 06:00 - VTE Documentation of Mechanical Device: Graduated compression elastic hosiery Consult Discharge Plan - Plan Referrals: Tesha Ricketts D>O> [Other] (APPT ON FEBRUARY 27, 2017 AT 12:00, OFFICE WILL SEND NEW PATIENT PACKET PRIOR TO APPT WITH DIRECTIONS) Herman King MD [Primary Care Provider] - 12/16/16 1:20 pm ()
--- NOTE | 2016-12-10 11:21 | Discharge Summary ---
Date of Encounter: 12/10/16 Time of Encounter: 11:19 - Discharge Diagnosis (1) Symptoms of cerebrovascular accident (CVA) Priority: Primary Status: Acute Comments: Patient is doing very well. She is ambulating about the room her speech is fine she is cognitively generally intact and is easily distracted right now but overall has done very well (2) Slurred speech Priority: Primary Status: Resolved Comments: Resolved (3) Acute encephalopathy Priority: Primary Status: Resolved Comments: Resolved (4) Acquired aphasia Priority: Primary Status: Acute Comments: Resolve (5) Encephalopathy Priority: Primary Status: Acute Comments: Resolve - Discharge Medications Home Medications: Acetaminophen [Tylenol] 650 mg PO Q6HR PRN #0 tablet 11/14/16 [Rx] Clopidogrel [Plavix] 75 mg PO DAILY 11/25/16 [History] MiraLAX Powder Bulk 17.9 Oz 17 g PO DAILY 11/25/16 [History] Tramadol HCl [Ultram] 50 mg PO QID PRN 11/25/16 [History] Allergies/Adverse Reactions: Allergies No Known Allergies Allergy (Verified 11/11/16 16:58) Date of admission: 11/25/16 16:54 Primary care physician: Herman King MD Consults: 11/25/16 17:09 Consult to Occupational Therapy [CONS] Routine Comment: Evaluate, develop and implement POC Consult to Physical Therapy [CONS] Routine Comment: Evaluate, develop and implement POC Consult to Recreational Therapy [CONS] Routine Comment: Evaluate, develop and implement POC Consult to [employer]man [CONS] Routine Reason for SW Consult: d/c planning Consult to Speech Therapy [CONS] Routine Comment: Evaluate, develop and implement POC Reason for Consult: speech impairment Call Completed: Yes 11/26/16 02:00 Consult to Psychology [CONS] Routine Consulting Provider: Perla Schaeffer Reason for Consult: cva hallucinations Call Completed: No Discharging clinician: Duran Barlow Anticipated date of discharge: 12/10/16 - Patient Status Disposition: Home, Self-Care Condition: Good Functional capacity at discharge: independent ambulation Overall status at discharge: patient is progressing back to baseline - Discharge Instructions Follow Up With: Tesha Ricketts D>O> [Other] (APPT ON FEBRUARY 27, 2017 AT 12:00, OFFICE WILL SEND NEW PATIENT PACKET PRIOR TO APPT WITH DIRECTIONS) Herman King MD [Primary Care Provider] - 12/16/16 1:20 pm () - Diet and Activity Activity: as per physical therapy Diet: advance to your usual diet Interval History: Ratio was admitted after CVA and most of her symptoms have resolved and she just needs some strengthening and endurance training Hospital course: Ms. Yepez is a 76 year old female He is generally cognitively intact and has worked well. - Time Spent with Patient Total time spent providing and/or coordinating discharge services: - Constitutional Vitals: Temp Pulse Resp BP Pulse Ox 98.1 F 66 16 115/59 94 12/10/16 07:15 12/10/16 07:15 12/10/16 07:15 12/10/16 07:15 12/10/16 07:15 General appearance: Present: A&O X 3, pleasant, answers questions appropriately - Head Head exam: Present: atraumatic, normal inspection, normocephalic - Neck Neck exam general surgery: Present: supple, trachea midline. Absent: lymphadenopathy - Respiratory Respiratory exam: Present: CTAB. Absent: accessory muscle use, rales, rhonchi, wheezes - Cardiovascular Cardiovascular exam: Present: RRR, +S1, +S2. Absent: diastolic murmur, gallop, rubs, systolic murmur - VTE Documentation of Mechanical Device: Graduated compression elastic hosiery
--- NOTE | 2016-12-10 11:25 | Physician Discharge Referral ---
Home Health/Hosp Referral Info Transfer to: Home Health Provider in Charge Post Discharge: PCP - Diagnosis (1) Symptoms of cerebrovascular accident (CVA) Priority: Primary Status: Acute (2) Slurred speech Status: Resolved (3) Acute encephalopathy Status: Resolved (4) Acquired aphasia Status: Acute (5) Encephalopathy Status: Resolved - Respiratory Orders Smoking Cessation: Smoking cessation has been advised. For more information, call the [place] Tobacco Quit Line at 3-319-DLIE-NOW. - Diet/Nutrition Diet/Nutrition Orders: Regular - Transfer Medications Home Medications: Acetaminophen [Tylenol] 650 mg PO Q6HR PRN #0 tablet 11/14/16 [Rx] Clopidogrel [Plavix] 75 mg PO DAILY 11/25/16 [History] MiraLAX Powder Bulk 17.9 Oz 17 g PO DAILY 11/25/16 [History] Tramadol HCl [Ultram] 50 mg PO QID PRN 11/25/16 [History] Allergies/Adverse Reactions: Allergies No Known Allergies Allergy (Verified 11/11/16 16:58) Certification: Further, I certify that my clinical findings support that this patient is homebound (i.e. absences from home require considerable and taxing effort and are for medical reasons or oriental orthodox services or infrequently or short duration when for other reasons) because: Homebound Reason: Patient requires assistance of a person or device to safely leave home Attestation: My signature below is to certify that this patient is under my care and that I, or nurse practitioner, or a physician's investment sales assistant working with me, has a face-to -face encounter with this patient.
[2016-12-11 07:44] VITALS: BP 106/71
== END 2016-12-11 10:59 | disposition home or self-care (01) | DRG 57 ==
LOC: INPGRE 11-25 16:54
PROVIDERS: ADMIT Internal Medicine; ATTEND Internal Medicine